=== PATIENT | female | born 1970 | race Hispanic/Latino ===

== ENCOUNTER 2018-10-05 18:08 | Emergency (ER) | payer OTHER ==
[2018-10-05] MEDS ORDERED: TETANUS & DIPHTHERIA TOX,ADULT 0.5 ML VIAL ONE (18:37)
[2018-10-05] MEDS ORDERED: SILVER NITRATE 1 APPL TOP ONE (18:37)
--- NOTE | 2018-10-05 18:46 | ER ---
Nurse's Notes [facility] Name: Regina Harper Age: 48 yrs Sex: Female : 1970 Arrival Date: 10/05/2018 Time: 18:11 Bed 25 Private MD: Diagnosis: Laceration without foreign body of left thumb without damage to nail Presentation: 10/05 18:13 Presenting complaint: Patient states: I was cutting pork chops with a knife and cut the la1 tip of my left thumb. Small amount of bleeding noted. Transition of care: patient was not received from another setting of care. Onset of symptoms was October 05, 2018. Risk Assessment: Do you want to hurt yourself or someone else? Patient reports no desire to harm self or others. Initial Sepsis Screen: Does the patient meet any 2 criteria? No. Patient's initial sepsis screen is negative. Does the patient have a suspected source of infection? No. Patient's initial sepsis screen is negative. Care prior to arrival: None. 18:13 Method Of Arrival: Ambulatory la1 18:13 Acuity: CHRISTI 4 la1 Historical: - Allergies: 18:14 No Known Allergies; la1 - PMHx: 18:14 None; la1 - Immunization history:: Adult Immunizations up to date. - Social history:: Smoking status: Patient/guardian denies using tobacco. - Ebola Screening: : No symptoms or risks identified at this time. Screenin:08 Abuse screen: Denies threats or abuse. Nutritional screening: No deficits noted. tl3 Tuberculosis screening: No symptoms or risk factors identified. Fall Risk None identified. Vital Signs: 18:14 BP 143 / 90; Pulse 75; Resp 18; Temp 97.8; Pulse Ox 98% on R/A; Weight 95.25 kg; Height la1 5 ft. 7 in. (170.18 cm); 18:14 Body Mass Index 32.89 (95.25 kg, 170.18 cm) la1 ED Course: 18:11 Patient arrived in ED. mr 18:14 Triage completed. la1 18:14 Arm band placed on left wrist. la1 18:18 Travon Martínez PA is PHCP. jr8 18:18 Christopher Florence MD is Attending Physician. jr8 18:50 Sharon Jett RN is Primary Nurse. tl3 19:08 Patient has correct armband on for positive identification. tl3 19:08 wound care. Patient did not have IV access during this emergency room visit. 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 Exp: tl3 10/31/2020. Lot #: [id number]. } Route: IM; Site: left deltoid; 19:09 Follow up: Response: No adverse reaction tl3 19:09 Follow up: Response: No adverse reaction tl3 Outcome: 18:45 Discharge ordered by MD. laws 19:08 Discharged to home ambulatory. tl3 19:08 Condition: stable 19:08 Discharge instructions given to patient, family, Instructed on discharge instructions, wound care, Demonstrated understanding of instructions, wound care. 19:10 Patient left the ED. tl3 Signatures: Allyssa Centeno mr MartínezTravon PA PA jr8 Sherwin Lorenz RN RN la1 Sharon Jett RN RN tl3
--- NOTE | 2018-10-05 18:47 | EDPHYS ---
Physician Documentation [facility] Name: Regina Harper Age: 48 yrs Sex: Female : 1970 Arrival Date: 10/05/2018 Time: 18:11 Bed 25 Private MD: ED Physician Christopher Florence HPI: 10/05 18:42 This 48 yrs old Female presents to ER via Ambulatory with complaints of Finger jr8 Injury. 18:42 The patient or guardian reports a laceration. The complaints affect the tip of left jr8 thumb. Context: The problem was sustained at home, resulted from cooking. Onset: The symptoms/episode began/occurred acutely, today. Modifying factors: The symptoms are alleviated by nothing, the symptoms are aggravated by nothing. Associated signs and symptoms: The patient has no apparent associated signs or symptoms. Severity of symptoms: At their worst the symptoms were moderate, in the emergency department the symptoms are unchanged. The patient has not experienced similar symptoms in the past. The patient has not recently seen a physician. Historical: - Allergies: 18:14 No Known Allergies; la1 - PMHx: 18:14 None; la1 - Immunization history:: Adult Immunizations up to date. - Social history:: Smoking status: Patient/guardian denies using tobacco. - Ebola Screening: : No symptoms or risks identified at this time. ROS: 18:42 Eyes: Negative for injury, pain, redness, and discharge, ENT: Negative for injury, jr8 pain, and discharge, Neck: Negative for injury, pain, and swelling, Cardiovascular: Negative for chest pain, palpitations, and edema, Respiratory: Negative for shortness of breath, cough, wheezing, and pleuritic chest pain, Abdomen/GI: Negative for abdominal pain, nausea, vomiting, diarrhea, and constipation, Back: Negative for injury and pain, Neuro: Negative for headache, weakness, numbness, tingling, and seizure. 18:42 MS/extremity: Positive for laceration, of the tip of left thumb. Exam: 18:42 Eyes: Pupils equal round and reactive to light, extra-ocular motions intact. Lids and jr8 lashes normal. Conjunctiva and sclera are non-icteric and not injected. Cornea within normal limits. Periorbital areas with no swelling, redness, or edema. ENT: Nares patent. No nasal discharge, no septal abnormalities noted. Tympanic membranes are normal and external auditory canals are clear. Oropharynx with no redness, swelling, or masses, exudates, or evidence of obstruction, uvula midline. Mucous membranes moist. Neck: Trachea midline, no thyromegaly or masses palpated, and no cervical lymphadenopathy. Supple, full range of motion without nuchal rigidity, or vertebral point tenderness. No Meningismus. Cardiovascular: Regular rate and rhythm with a normal S1 and S2. No gallops, murmurs, or rubs. Normal PMI, no JVD. No pulse deficits. Respiratory: Lungs have equal breath sounds bilaterally, clear to auscultation and percussion. No rales, rhonchi or wheezes noted. No increased work of breathing, no retractions or nasal flaring. Abdomen/GI: Soft, non-tender, with normal bowel sounds. No distension or tympany. No guarding or rebound. No evidence of tenderness throughout. Back: No spinal tenderness. No costovertebral tenderness. Full range of motion. Skin: Warm, dry with normal turgor. Normal color with no rashes, no lesions, and no evidence of cellulitis. Neuro: Awake and alert, GCS 15, oriented to person, place, time, and situation. Cranial nerves II-XII grossly intact. Motor strength 5/5 in all extremities. Sensory grossly intact. Cerebellar exam normal. Normal gait. 18:42 Musculoskeletal/extremity: Extremities: grossly normal except: noted in the left thumb: laceration, Patient cut the tip of the left thumb with knife. Approximately 1 cm by 1 cm laceration. Did not involve the nail. Rest of thumb intact, ROM: intact in all extremities, Circulation is intact in all extremities. Sensation intact. Vital Signs: 18:14 BP 143 / 90; Pulse 75; Resp 18; Temp 97.8; Pulse Ox 98% on R/A; Weight 95.25 kg; Height la1 5 ft. 7 in. (170.18 cm); 18:14 Body Mass Index 32.89 (95.25 kg, 170.18 cm) la1 MDM: 18:18 Patient medically screened. [facility] 18:42 Data reviewed: vital signs, nurses notes, and as a result, I will discharge patient. jr8 Data interpreted: Pulse oximetry: on room air is 98 %. Interpretation: normal. Counseling: I had a detailed discussion with the patient and/or guardian regarding: the historical points, exam findings, and any diagnostic results supporting the discharge/admit diagnosis, the need for outpatient follow up, a family practitioner, to return to the emergency department if symptoms worsen or persist or if there are any questions or concerns that arise at home. 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 Exp: tl3 10/31/2020. Lot #: [id number]. } Route: IM; Site: left deltoid; 19:09 Follow up: Response: No adverse reaction tl3 19:09 Follow up: Response: No adverse reaction tl3 Disposition: 10/05/18 18:45 Discharged to Home. Impression: Laceration without foreign body of left thumb without damage to nail. - Condition is Stable. - Discharge Instructions: Laceration Care, Adult. - Medication Reconciliation Form, Thank You Letter, Antibiotic Education, Prescription Opioid Use form. - Follow up: Private Physician; When: 2 - 3 days; Reason: Wound Recheck, Recheck today's complaints, Continuance of care, Re-evaluation by your physician. - Problem is new. - Symptoms have improved. Addendum: 10/07/2018 07:50 Co-signature as Attending Physician, Christopher Florence MD I agree with the assessment and c hernandes plan of care. Signatures: Christopher Florence MD MD cha Roszak, Josh, PA PA jr8 Sherwin Lorenz RN RN la1 Sharon Jett RN RN tl3 Corrections: (The following items were deleted from the chart) 10/05 19:10 18:45 10/05/2018 18:45 Discharged to Home. Impression: Laceration without foreign body tl3 of left thumb without damage to nail. Condition is Stable. Forms are Medication Reconciliation Form, Thank You Letter, Antibiotic Education, Prescription Opioid Use. Follow up: Private Physician; When: 2 - 3 days; Reason: Wound Recheck, Recheck today's complaints, Continuance of care, Re-evaluation by your physician. Problem is new. Symptoms have improved. jr8
== END 2018-10-05 19:10 | disposition home or self-care (01) ==
LOC: ER 18:08
DX: S61.012A Laceration without foreign body of left thumb without damage to nail, initial encounter (principal); W26.0XXA Contact with knife, initial encounter; Y93.G3 Activity, cooking and baking; Y92.000 Kitchen of unspecified non-institutional (private) residence as the place of occurrence of the external cause; Z23 Encounter for immunization
CPT/HCPCS: 90471; 90714